=== PATIENT | male | born 1970 | race Hispanic/Latino ===

== ENCOUNTER 2021-07-05 06:31 | Day surgery (SDC) | payer OTHER ==
[2021-07-03 10:25] VITALS: BP 155/87
[2021-07-03 10:40] LABS: BASOPHILS % (AUTO) 0.6 % (0.0-5.0); EOSINOPHILS % (AUTO) 1.3 % (0.0-8.0); HEMATOCRIT 40.2 % (36-48); MEAN CORPUSCULAR HEMOGLOBIN 31.3 pg (27.0-33.0); MEAN CORPUSCULAR HGB CONC 33.6 g/dL (32.0-36.0); MEAN CORPUSCULAR VOLUME 93.1 fL (79-99); MONOCYTES % (AUTO) 8.6 % (3.0-13.0); NEUTROPHILS % (AUTO) 57.2 % (40.0-77.0); PLATELET COUNT (AUTO) 227 K/uL (130-400); RED BLOOD CELL COUNT(AUTO) 4.32 MIL/uL (4.00-5.50); RED CELL DISTRIBUTION WIDTH 12.6 % (11.0-15.5); WHITE BLOOD COUNT (AUTO) 6.4 K/uL (4.8-10.8)
[2021-07-03 10:53] LABS: CREATININE 0.7 mg/dL (0.5-1.5); POTASSIUM 4.3 mmol/L (3.5-5.1)
[~2021-07-05] VITALS: Ht 188 cm; Wt 118.1 kg
[2021-07-05] VITALS (18 sets, daily range): BP systolic 117–149; BP diastolic 50–72
[~2021-07-05 06:31] MED LIST: CEFAZOLIN SODIUM 1 GM VIAL IVP SCH; OMEG100033 PO
[2021-07-05] MEDS ORDERED: PROPOFOL 10 MG/ML 20ML VIAL IV ONE ×2 (06:50→09:47)
[2021-07-05] MEDS ORDERED: MIDAZOLAM HCL 1 MG/ML 2ML VIAL ONE (06:50)
[2021-07-05] MEDS ORDERED: FENTANYL CITRATE PF 50 MCG/1 ML 5ML AMP IV ONE (06:51)
[2021-07-05] MEDS ORDERED: LACTATED RINGERS 1000ML 1,000 ML IV ONE (07:06)
[2021-07-05] MEDS ORDERED: FERR-82 PO (07:27)
[2021-07-05] MEDS ORDERED: CEFAZOLIN SODIUM 2 GM VIAL IV ONE (08:34)
[2021-07-05] MEDS ORDERED: ONDANSETRON 4MG INJ ONE ×2 (08:35→10:06)
[2021-07-05] MEDS ORDERED: EPHEDRINE SULFATE 50 MG/ML AMPULE ONE (08:48)
[2021-07-05] MEDS ORDERED: CEFAZOLIN SODIUM 1 GM VIAL ONE (08:56)
[2021-07-05] MEDS ORDERED: CEFAZOLIN SODIUM 1 GM VIAL IRRIG ONE (09:08)
[2021-07-05] MEDS ORDERED: CEPH500B PO (09:55)
[2021-07-05] MEDS ORDERED: ACET-2079 PO (09:55)
[2021-07-05] MEDS ORDERED: IBUP-2077 PO (09:59)
[2021-07-05] MEDS ORDERED: MEPERIDINE-PF 25 MG/ML SYG ONE ×2 (10:06→10:48)
[2021-07-05] MEDS ORDERED: KETOROLAC 30MG VIAL (30MG/ML) ONE (10:06)
== END 2021-07-05 12:00 | disposition home or self-care (01) ==
LOC: DAH 06:31
PROVIDERS: ATTEND Orthopaedic Surgery
DX: M23.352 Other meniscus derangements, posterior horn of lateral meniscus, left knee (principal); M22.42 Chondromalacia patellae, left knee; M17.32 Unilateral post-traumatic osteoarthritis, left knee; I10 Essential (primary) hypertension; F32.9 Major depressive disorder, single episode, unspecified; E66.9 Obesity, unspecified; G47.33 Obstructive sleep apnea (adult) (pediatric); E78.00 Pure hypercholesterolemia, unspecified; Z98.890 Other specified postprocedural states; Z98.1 Arthrodesis status
CPT/HCPCS: 29873; 29881; 36415; 80048; 85025; 87635; A4215; A4221; A4222; A4223; A4649 ×2; A4663; A4930; A6223; C9803; J0690 ×4; J1885; J2175 ×2; J2250; J2405 ×2; J2704 ×2; J3010; J3490; J7120